=== PATIENT | male | born 1980 | race Caucasian/White ===

== ENCOUNTER 2018-08-12 01:42 | Day surgery (SDC) | payer OTHER ==
[~2018-08-12] VITALS: Ht 170.2 cm; Wt 68.0 kg
[~2018-08-12 01:42] MED LIST: ALBU8.5H IH; PANT40TA65 PO
[2018-08-12] MEDS ORDERED: PROPOFOL EMUL(*) 10MG/ML 20 ML 20 ML ONE ×2 (08:46→11:35)
[2018-08-12 09:45] VITALS: BP 130/84
[2018-08-12] MEDS ORDERED: LIDOCAINE/SOD BICARB 8.4% SYR ID ONE (10:30)
[2018-08-12] MEDS ORDERED: NORMOSOL R SOLN(*) 1000 ML BAG 1,000 ML IV PRN (10:30)
[2018-08-12 12:22] VITALS: BP 108/73
[2018-08-12 12:30] VITALS: BP 112/76
[2018-08-12 12:45] VITALS: BP 109/74
[2018-08-12 12:54] VITALS: BP 108/77
[2018-08-12 12:55] VITALS: BP 109/85
== END 2018-08-12 13:20 | disposition home or self-care (01) ==
LOC: OR 01:42
PROVIDERS: ATTEND Internal Medicine Gastroenterology
DX: R10.13 Epigastric pain (principal); R19.7 Diarrhea, unspecified; K44.9 Diaphragmatic hernia without obstruction or gangrene; K20.9 Esophagitis, unspecified; J45.909 Unspecified asthma, uncomplicated; K21.9 Gastro-esophageal reflux disease without esophagitis; E83.119 Hemochromatosis, unspecified; Z87.891 Personal history of nicotine dependence
CPT/HCPCS: 00813; 43239; 43249; 45380; 88305; 88313; 88344; C1726; J2704

== ENCOUNTER → 2018-08-13 | Outpatient (CLI) | payer OTHER ==
--- NOTE | 2018-08-13 09:28 | RADIOLOGY IMAGING REPORT ---
FACILITY: [facility] PATIENT NAME: Lew Nichole : 1980 MR: [id number] V: [id number] EXAM DATE: ORDERING PHYSICIAN: LEE FRANCISCO TECHNOLOGIST: Location: [facility] Patient: Lew Nichole : 1980 Visit/Account:[id number] Date of Sevice: 08/13/2018 LIVER HISTORY: Hemochromatosis COMPARISON: None. FINDINGS: Liver: Normal in size and contour. Unremarkable echogenicity. No visualized hepatic mass Gallbladder: Unremarkable; no stones or sludge. Common duct: Normal, 3 mm diameter. Pancreas: Partially obscured by bowel, visualized aspects unremarkable. Right kidney: Negative. Upper abdominal aorta and IVC: Patent. Ascites: None visualized. IMPRESSION: Negative exam. Liver appears unremarkable. Report Dictated By: Curt Chau MD at 08/13/2018 9:19 AM Report E-Signed By: Curt Chau MD at 08/13/2018 9:20 AM WSN:[id number]
== END ==
LOC: US 06:51
PROVIDERS: ATTEND Nurse Practitioner Family
DX: E83.119 Hemochromatosis, unspecified (principal)
CPT/HCPCS: 76705